=== PATIENT | female | born 1940 ===

== ENCOUNTER 2021-10-14 06:23 | Day surgery (SDC) | payer OTHER ==
[2021-10-14] MEDS ORDERED: ULTRACET PO (10:13)
[2021-10-14] MEDS ORDERED: MACROBID 100 M100 MG PO (10:13)
== END 2021-10-14 13:50 | disposition home or self-care (01) ==
LOC: CIR.AMB 06:23
PROVIDERS: ATTEND Obstetrics & Gynecology Gynecology
DX: N81.5 Vaginal enterocele (principal); N81.6 Rectocele; N81.82 Incompetence or weakening of pubocervical tissue; N81.83 Incompetence or weakening of rectovaginal tissue; Z20.822 Contact with and (suspected) exposure to COVID-19